=== PATIENT | male | born 1990 | race Caucasian/White ===

== ENCOUNTER 2024-07-21 09:32 | Emergency (ER) | payer BC, SELFPAY ==
[2024-07-21 09:36] VITALS: BP 139/92
--- NOTE | 2024-07-21 10:11 | ED.GENMED ---
History of Present Illness
<Emilia Le PA-C - Last Filed: 07/21/24 17:17>
General
Chief Complaint: Abdominal Symptoms
Source: patient
Exam Limitations: none
Time Seen by Provider: 07/21/24 09:40
Nursing documentation reviewed up to this point in time: agreed with
History of Present Illness
History of Present Illness:
Patient is a 34-year-old male presenting to the emergency department for evaluation of 2 days of nausea, vomiting, diarrhea associated with generalized abdominal pain. Patient states Sunday night a little bit after dinner he started with
generalized bloating. He then started having multiple bouts of diarrhea and was complaining of mid abdominal discomfort. Patient has had constant nausea since Sunday night with a few episodes of dry heaving this morning. Patient denies any
associated fevers, chills, urinary symptoms, hematochezia.
Patient states pain at this time is much improved than what it was earlier. He describes a severe intermittent cramping pain throughout his mid abdomen. He has been taking Pepto-Bismol without much relief.
Patient denies any sick contacts. No recent seafood ingestion, antibiotic use. No recent travel.
Of note�patient has been taking Mounjaro injections for the past 5 to 6 weeks. He denies any recent increase in dosage. Symptoms started 6 days following his most recent injection. Patient did not proceed with his scheduled injection this past
Sunday due to abdominal symptoms.
Past History
<Emilia Le PA-C - Last Filed: 07/21/24 17:17>
Past History
ED Past Medical History: Negative GERD, HTN or IDDM
ED Past Surgical History: None
Social History
Drug: Marijuana
Personal: Single
Living: with family
Employment: Other (high school student)
Review of Systems
<Emilia Le PA-C - Last Filed: 07/21/24 17:17>
Review of Systems
Allergies reviewed?: Yes
All Other Systems: ROS reviewed and negative except as documented in HPI and ROS
Phy Exam
<Emilia Le PA-C - Last Filed: 07/21/24 17:17>
Physical Exam
Physical Exam:
Vitals: Patient's vital signs are stable. Afebrile
General: Patient is well appearing, no acute distress. Nontoxic-appearing
Skin: Warm and dry, no rashes or lesions
Head: Normocephalic, atraumatic
Throat: Protecting airway
Neck: Normal ROM, no cervical spine tenderness, no meningismus
Cardiac: Regular rate and rhythm, no murmurs.
Pulm: Normal respiratory effort, no wheezes, rales, rhonchi heard on exam.
Abdomen: Abdomen soft and nontender throughout. No rebound tenderness or guarding. Negative Stringer sign. No CVA tenderness
Extremities: No evidence of cyanosis or edema
Neuro: Grossly intact.
Psychiatric: Normal affect.
Course
<Emilia Le PA-C - Last Filed: 07/21/24 17:17>
Orders/Labs/Results
Orders:
Orders
07/21/24 09:58
IV Insert/Care/Rem.- Treatment PRN
0.9% Sodium Chloride 1000 ml [Nss] 1,000 ml IV BOLUS
Ondansetron Injectable [Zofran] 4 mg IV NOW STA
07/21/24 10:28
Complete Blood Count/With Diff Urgent
Comprehensive Metabolic Panel Urgent
Lipase Urgent
07/21/24 10:35
Pantoprazole [Protonix IV] 40 mg IV NOW STA
US Abdomen Complete/Upper Urgent
Comment: on monjouro
Reason For Exam: abdominal pain +N/V/D
Abnormal Lab Results
07/21/24
10:28
MPV 10.8 H fL
(7.4-10.4)
Monocytes % 9.5 H %
(1.7-9.3)
AST 166 H U/L
(17-59)
ALT 126 H U/L
(0-50)
07/21/24 10:28
07/21/24 10:28
Vital Signs
Initial and Last Documented VS:
Initial Vital Signs
Temp Pulse Resp BP Pulse Ox
98.6 F 68 16 139/92 98
07/21/24 09:36 07/21/24 09:36 07/21/24 09:36 07/21/24 09:36 07/21/24 09:36
Last Documented Vital Signs
Temp Pulse Resp BP Pulse Ox
98.5 F 96 20 145/82 99
07/21/24 13:24 07/21/24 13:24 07/21/24 13:24 07/21/24 13:24 07/21/24 13:24
<Jaydon Lentz MD - Last Filed: 07/21/24 14:12>
Orders/Labs/Results
Orders:
Orders
07/21/24 09:58
IV Insert/Care/Rem.- Treatment PRN
0.9% Sodium Chloride 1000 ml [Nss] 1,000 ml IV BOLUS
Ondansetron Injectable [Zofran] 4 mg IV NOW STA
07/21/24 10:28
Complete Blood Count/With Diff Urgent
Comprehensive Metabolic Panel Urgent
Lipase Urgent
07/21/24 10:35
Pantoprazole [Protonix IV] 40 mg IV NOW STA
US Abdomen Complete/Upper Urgent
Comment: on monjouro
Reason For Exam: abdominal pain +N/V/D
Abnormal Lab Results
07/21/24
10:28
MPV 10.8 H fL
(7.4-10.4)
Monocytes % 9.5 H %
(1.7-9.3)
AST 166 H U/L
(17-59)
ALT 126 H U/L
(0-50)
07/21/24 10:28
07/21/24 10:28
Vital Signs
Initial and Last Documented VS:
Initial Vital Signs
Temp Pulse Resp BP Pulse Ox
98.6 F 68 16 139/92 98
07/21/24 09:36 07/21/24 09:36 07/21/24 09:36 07/21/24 09:36 07/21/24 09:36
Last Documented Vital Signs
Temp Pulse Resp BP Pulse Ox
98.5 F 96 20 145/82 99
07/21/24 13:24 07/21/24 13:24 07/21/24 13:24 07/21/24 13:24 07/21/24 13:24
<Emilia Le PA-C - Last Filed: 07/21/24 17:17>
MDM/Problems Addressed
Differential Diagnosis Includes:
Not limited to: Viral gastroenteritis, medication side effect, dehydration, cholecystitis, biliary colic, appendicitis, diverticulitis, pancreatitis
MDM/Problems Addressed:
34-year-old male with 2 days of generalized abdominal pain associated with nausea, vomiting, diarrhea. No known fevers or chills. No sick contacts. At time my examination�patient states pain is essentially gone and much improved from prior.
Patient's vital signs are stable on arrival, he is afebrile. Physical exam as above. Patient is well-appearing, conversational nontoxic-appearing. Heart regular rate and rhythm. Lungs Bilaterally. Abdomen is soft and nontender throughout
without any rebound tenderness or guarding. Negative Stringer sign. No peritoneal signs. Patient is perfusing well. Differential broad at this time although includes viral gastroenteritis, medication side effect from Mounjaro, dehydration,
pancreatitis, cholecystitis. No risk factors for bacterial diarrhea. Somewhat lower suspicion for acute surgical abdomen given patient is afebrile with benign abdominal exam. Will check basic labs, lipase, urine. Will give Zofran and IV fluids.
Patient denies any analgesia at this time. Will closely monitor and reassess
Chronic conditions affecting care:
N/A
Acute Exacerbation and/or Progression of Chronic Illness:
N/A
<Emilia Le PA-C - Last Filed: 07/21/24 17:17>
*Radiology
Radiology exam reviewed: radiology read reviewed
*Pulse Oximetry
Patient hypoxic: no
*EKG
Interpreted by ED Provider?: NA
*It Applications Analyst Interpretation
Rate: It Applications Analyst- N/A
*Critical Care Note
Total Time (30-74mins, 75-104mins- exclusive of procedures): Not Applicable
<Emilia Le PA-C - Last Filed: 07/21/24 17:17>
Update Note
Update Note:
Update: Labs reviewed. CBC without any clinically significant abnormalities. Transaminitis noted on chemistry. Normal total bilirubin. Otherwise no clinically significant abnormalities. Ultrasound shows no acute abnormality. Patient did
receive a liter of fluids in emergency department. Patient has had no episodes of vomiting or diarrhea in emergency department. Patient is tolerating p.o. liquid and crackers by mouth. Suspect likely viral gastroenteritis versus reaction from
Zepbound. Advised to hold Zepbound until cleared by primary. Patient stable for discharge with primary follow-up.
ED Attending Note
<Emilia Le PA-C - Last Filed: 07/21/24 17:17>
-
Portions of this chart may have been created with voice recognition software.� Occasional wrong word or��sound alike� substitutions may have occurred due to the inherent limitations of voice recognition software.
<Jaydon Lentz MD - Last Filed: 07/21/24 14:12>
ED Attending Note
Patient seen and examined by attending physician: Yes
ED Attending Note:
I have seen and evaluated the patient with a [id number] encounter. I have spoken to the advance practicer provider and involved in the medical history, the physical exam, medical decision making.
Evaluation and management service: agree unless noted differently below.
Results interpretation: agree unless noted differently below.
Focused HPI: 34-year-old male with no significant chronic medical issues who presents to the ER for evaluation of epigastric discomfort associated with nausea and vomiting also having diarrhea. Patient reports onset of symptoms Sunday they have
been constant x 3 days. Reports multiple episodes of dry heaving. Given duration of symptoms came to the ER for evaluation. He does note that he recently started Zepbound for weight loss. Denies similar symptoms in the past. Denies any surgical
history.
Physical exam: Awake alert not in distress. Mucous membranes moist. Neck supple. Abdomen soft, nontender to deep palpation. No palpable masses.
Medical Decision Makin-year-old male presents for evaluation of nausea/vomiting/diarrhea associate with mild epigastric pain x 3 days. Does not appear dehydrated, vitals normal, exam as above. We sent off labs including a CBC and a CMP which
were remarkable for marginal elevation of transaminases but normal T. bili and normal lipase. Upper abdominal ultrasound shows no cholelithiasis or cholecystitis, no biliary ductal patient, mild fatty liver disease which likely accounts for
marginal transaminitis. Suspect either acute gastritis/gastroenteritis related to viral illness or possibly side effect of Zepbound. Will start on PPI, Zofran as needed, encourage fluids. Advised to discuss with PCP regarding potentially
discontinuing Zepbound if symptoms not improving.
Discharge Plan
Departure
Patient Disposition: Home (Routine Discharge)
Date of Disposition: 07/21/24
Time of Disposition: 13:01
Patient with high blood pressure during this ER visit?: Yes
Condition: Good
Covid-19: Not Applicable
Discharge Problem:
Abdominal pain, Nausea vomiting and diarrhea
Instructions: Dehydration, Adult (DC), Nausea and Vomiting, Adult (DC), Abdominal Pain, BLOOD PRESSURE
Prescriptions:
New
ondansetron 4 mg tablet,disintegrating
4 mg PO Q8H PRN (Reason: nausea and vomiting) Qty: 10 0RF
Referrals:
Casey Munoz MD [Family Provider] -
Activity Restrictions/Additional Instructions:
RETURN TO THE EMERGENCY DEPARTMENT WITH ANY FEVERS, CHILLS, INTRACTABLE NAUSEA/VOMITING, SEVERE ABDOMINAL PAIN, SIGNS OF SEVERE DEHYDRATION, OR ANY OTHER CONCERNS
-A prescription for Zofran has been sent to your pharmacy. You can take this up to every 8 hours as needed for nausea. It is important you stay well-hydrated. Follow a bland diet over the next few days and advance as tolerated.
-You should follow-up with your primary care provider for further evaluation/management. Avoid any repeat injections of Zepbound until this is cleared by her primary care.
-As discussed�you should have your liver function tests repeated in a few weeks to ensure they are trending down.
Monitor your symptoms closely return to the emergency department with any acute worsening/new symptoms
Interventions
Interventions:
*Risk Screen - Suicide Last Done: 07/21/24 09:36
*General Assessment Last Done: 07/21/24 10:31
*Neglect/Abuse Screening Last Done: 07/21/24 09:36
ED- Fall Risk Assessment Last Done: 07/21/24 10:31
*ED COVID-19 Vaccine History Last Done: 07/21/24 10:31
*Nursing Disposition Last Done: 07/21/24 13:24
FD-Ejxpef-Fllmmwiuxw Assessment Last Done: 07/21/24 10:31
Discharge Date and Time
Discharge Date/Time: 07/21/24 13:24
Print Language: BURUNDI[place]
[2024-07-21 10:31] VITALS: BP 123/81; BMI 27.7
[2024-07-21] MEDS: NSS 1000 IV (10:34)
[2024-07-21] MEDS: ZOFRAN 4 MG IV (10:34)
[2024-07-21 10:50] LABS: % Basophils 0.2 % (0-2); % Eosinophils 1.3 % (0-6); % Immature Granulocytes 0.4 % (0-0.5); % Lymphocytes 25.9 % (20.5-51.1); % Monocytes 9.5 % (1.7-9.3); % Neutrophils 62.7 % (42.2-75.2); Absolute Eosinophils 0.1 10^3/uL (0-0.7); Absolute Lymphocytes 1.4 10^3/uL (1.2-3.4); Absolute Monocytes 0.5 10^3/uL (0.1-0.6); Absolute Neutrophils 3.4 10^3/uL (1.4-6.5); Hematocrit 42.8 % (39.0-52.0); Hemoglobin 15.1 g/dL (13.0-18.0); Mean Corp Hgb Conc. 35.3 g/dL (33.0-37.0); Mean Corpuscular Hgb 29.7 pg (27.0-31.0); Mean Corpuscular Volume 84.1 fL (80.0-94.0); Mean Platelet Volume 10.8 fL (7.4-10.4); Nucleated Red Blood Cells % 0 % (-); Platelet Count 242 10^3/uL (130-400); Red Blood Cell Count 5.09 10^6/uL (4.70-6.10); Red Cell Dist. Width 12.6 % (11.5-14.5); White Blood Cell Count 5.4 10^3/uL (4.8-10.8)
[2024-07-21 10:52] LABS: ALT (SGPT) 126 U/L (0-50); AST (SGOT) 166 U/L (17-59); Albumin 4.7 g/dl (3.5-5.0); Alkaline Phosphatase 60 U/L (38-126); Blood Urea Nitrogen 17 mg/dl (9-20); Calcium 9.6 mg/dl (8.4-10.2); Carbon Dioxide 24 mmol/L (22-30); Chloride 105 mmol/L (98-107); Estimated Creatinine Clearance 114 ml/min; Glucose 86 mg/dl (70-99); Lipase 111 U/L (23-300); Potassium 4.4 mmol/L (3.5-5.1); Sodium 141 mmol/L (135-145); Total Bilirubin 0.6 mg/dl (0.2-1.3); Total Protein 7.5 g/dl (6.3-8.2); eGFR > 60.00
[2024-07-21 11:00] VITALS: BP 120/68
[2024-07-21] MEDS: PROTONIX IV 40 MG IV (11:05)
[2024-07-21 13:21] VITALS: BP 123/81
[2024-07-21 13:24] VITALS: BP 145/82
== END 2024-07-21 13:24 | disposition home or self-care (01) ==
LOC: EMR 09:32
PROVIDERS: Physician Assistant; EMERGENCY PHYSICIAN Emergency Medicine; FAMILY PHYSICIAN Family Medicine
DX: R10.9 Unspecified abdominal pain (principal); R11.2 Nausea with vomiting, unspecified; R19.7 Diarrhea, unspecified; R03.0 Elevated blood-pressure reading, without diagnosis of hypertension
CPT/HCPCS: 99284; 96374; 96375; 96361; 76700; 80053; 83690; 85025